=== PATIENT | female | born 1995 | race Two or more races ===

== ENCOUNTER 2019-11-14 20:21 | Inpatient (IN) | payer BC ==
[2019-11-14] MEDS ORDERED: Sodium Chloride 0.9% 2.5 ML Syringe FLUSH PRN (20:35)
[2019-11-14] MEDS ORDERED: Misoprostol 200 MCG Tab PO PRN (20:35)
[2019-11-14] MEDS ORDERED: Lidocaine 1% 50 ML MDV INJECT PRN (20:35)
[2019-11-14] MEDS ORDERED: Sodium Chloride 0.9% 10 ML Syringe FLUSH PRN (20:35)
[2019-11-14] MEDS ORDERED: Carboprost Tromethamine 250 MCG/1 ML Amp IM PRN (20:35)
[2019-11-14] MEDS ORDERED: Water For Irrigation,Sterile 1,000 ML Container IRR PRN (20:35)
[2019-11-14] MEDS ORDERED: Methylergonovine 0.2 MG/1 ML Amp IM PRN (20:35)
[2019-11-14] MEDS ORDERED: Nalbuphine 10 MG/1 ML Vial IVPUSH PRN (20:35)
[2019-11-14] MEDS ORDERED: Ondansetron 4 MG/2 ML SDV IVPUSH PRN (20:35)
[2019-11-14] MEDS ORDERED: Sodium Chloride 0.9% 10 ML SDV IV PRN (20:35)
[2019-11-14] MEDS ORDERED: Tranexamic Acid 1,000 MG in Sodium Chloride 0.9% 100 ML IV PRN (20:35)
[2019-11-14] MEDS ORDERED: Terbutaline 1 MG/ML SDV SUBCUT PRN (20:38)
[2019-11-14] MEDS ORDERED: Oxytocin/0.9 % Sodium Chloride 30 UNIT/500 ML BAG IV SCH ×2 (20:45)
[2019-11-14] MEDS: Lactated Ringers 1,000 ML IV SCH (21:15)
[2019-11-15] MEDS ORDERED: Famotidine 20 MG Tab PO ONE (01:15)
[2019-11-15] MEDS: Butorphanol 1 MG/ML SDV IVPUSH PRN ×2 (02:30→06:19)
[2019-11-15] MEDS: Lactated Ringers 1,000 ML IV SCH (09:25)
[2019-11-15] MEDS ORDERED: Ropivacaine HCl/PF 100 ML ONE ×2 (10:07→19:07)
[2019-11-15] MEDS ORDERED: fentaNYL 100 MCG/2 ML SDV ONE ×3 (10:07→19:07)
--- NOTE | 2019-11-15 10:35 | PCM.PREANE ---
Preanesthetic Assessment - Anesthesia/Transfusion/Family Hx Anesthesia History: Prior Anesthesia Without Reaction Family History of Anesthesia Reaction: No Transfusion History: No Prior Transfusion(s) Type of Transfusion Reactions: Reports: Unknown - Physical Assessment NPO Status Date: 11/15/19 NPO Status Time: 00:05 Height: 1.6 m Weight: 102.739 kg ASA Class: 1 - Lab Values: Laboratory Last Values WBC 12.73 K/uL (4.0-11.0) H 11/14/19 20:59 RBC 4.66 M/uL (4.30-5.90) 11/14/19 20:59 Hgb 11.4 g/dL (12.0-16.0) L 11/14/19 20:59 Hct 37.3 % (36.0-46.0) 11/14/19 20:59 MCV 80.0 fL (80.0-98.0) 11/14/19 20:59 MCH 24.5 pg (27.0-32.0) L 11/14/19 20:59 MCHC 30.6 g/dL (31.0-37.0) L 11/14/19 20:59 RDW Std Deviation 42.9 fl (28.0-62.0) 11/14/19 20:59 RDW Coeff of Buddy 15 % (11.0-15.0) 11/14/19 20:59 Plt Count 278 K/uL (150-400) 11/14/19 20:59 MPV 11.00 fL (7.40-12.00) 11/14/19 20:59 Nucleated RBC % 0.0 /100WBC 11/14/19 20:59 Nucleated RBCs # 0 K/uL 11/14/19 20:59 Blood Type O POSITIVE 11/14/19 20:59 Antibody Screen NEGATIVE 11/14/19 20:59 - Allergies Allergies/Adverse Reactions: Allergies Allergy/AdvReac Type Severity Reaction Status Date / Time No Known Allergies Allergy Verified 10/19/19 12:37 - Acknowledgements Anesthesia Type Planned: Epidural Pt an Appropriate Candidate for the Planned Anesthesia: Yes Alternatives and Risks of Anesthesia Discussed w Pt/Guardian: Yes Pt/Guardian Understands and Agrees with Anesthesia Plan: Yes PreAnesthesia Questionnaire HEENT History: Reports: None Cardiovascular History: Reports: None Respiratory History: Reports: None Gastrointestinal History: Reports: None Genitourinary History: Reports: None 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: Musculoskeletal History: Reports: None Neurological History: Reports: None Psychiatric History: Reports: None Hematologic History: Reports: None Immunologic History: Reports: None Oncologic (Cancer) History: Reports: None Dermatologic History: Reports: None - Infectious Disease History Infectious Disease History: Reports: None - Past Surgical History Head Surgeries/Procedures: Reports: None HEENT Surgical History: Reports: None Cardiovascular Surgical History: Reports: None GI Surgical History: Reports: None Female Surgical History: Reports: LEEP Endocrine Surgical History: Reports: None Neurological Surgical History: Reports: None Musculoskeletal Surgical History: Reports: None Oncologic Surgical History: Reports: None - SUBSTANCE USE Smoking Status *Q: Never Smoker Second Hand Smoke Exposure: No Recreational Drug Use History: No - HOME MEDS Home Medications: Home Meds . [No Known Home Meds] 10/19/19 [History] - CURRENT (IN HOUSE) MEDS Current Meds: Current Medications Butorphanol Tartrate (Stadol) 1 mg IVPUSH Q1H PRN PRN Reason: Pain Last Admin: 11/15/19 06:19 Dose: 1 mg Carboprost Tromethamine (Hemabate Ds) 250 mcg IM ASDIRECTED PRN PRN Reason: Post Hemorrhage Lactated Ringer's (Ringers, Lactated) 1,000 mls @ 150 mls/hr IV ASDIRECTED CARLOS Last Admin: 11/15/19 09:25 Dose: 150 mls/hr Oxytocin/Sodium Chloride (Oxytocin 30 Unit/500 Ml-Ns) 30 unit in 500 mls @ 999 mls/hr IV TITRATE CARLOS Tranexamic Acid 1,000 mg/ (Sodium Chloride) 110 mls @ 660 mls/hr IV ONETIME PRN PRN Reason: Bleeding Oxytocin/Sodium Chloride (Oxytocin 30 Unit/500 Ml-Ns) 30 unit in 500 mls @ 2 mls/hr IV TITRATE CARLOS; Protocol Last Titration: 11/15/19 10:01 Dose: 6 munits/min, 6 mls/hr Lidocaine HCl (Xylocaine 1%) 50 ml INJECT ONETIME PRN PRN Reason: Laceration repair Methylergonovine Maleate (Methergine) 0.2 mg IM ASDIRECTED PRN PRN Reason: Post Hemorrhage Misoprostol (Cytotec) 200 mcg PO ONETIME PRN PRN Reason: Post Hemorrhage Nalbuphine HCl (Nubain) 10 mg IVPUSH Q1H PRN PRN Reason: Pain (severe 7-10) Ondansetron HCl (Zofran) 4 mg IVPUSH Q6H PRN PRN Reason: Nausea/Vomiting Sodium Chloride (Saline Flush) 10 ml FLUSH ASDIRECTED PRN PRN Reason: Keep Vein Open Sodium Chloride (Saline Flush) 2.5 ml FLUSH ASDIRECTED PRN PRN Reason: Keep Vein Open Sodium Chloride (Normal Saline) 10 ml IV ASDIRECTED PRN PRN Reason: IV Use Sterile Water (Sterile Water For Irrigation) 1,000 ml IRR ASDIRECTED PRN PRN Reason: delivery Terbutaline Sulfate (Brethine) 0.25 mg SUBCUT ASDIRECTED PRN PRN Reason: Tacysystole Discontinued Medications Famotidine (Pepcid) 40 mg PO ONETIME ONE Stop: 11/15/19 01:16 Last Admin: 11/15/19 01:36 Dose: 40 mg Fentanyl (Sublimaze) Confirm Administered Dose 100 mcg .ROUTE .STK-MED ONE Stop: 11/15/19 10:08 Ropivacaine (Naropin 0.2%) Confirm Administered Dose 100 mls @ as directed .ROUTE .STK-MED ONE Stop: 11/15/19 10:08
--- NOTE | 2019-11-15 10:39 | PCM.PRNOTE ---
- Free Text/Narrative Note: Anes Note Patient requests epidural for L&D. Sitting position, level L3-L4 midline approach. Sterile technique. Chloraprep scrub to lumbar area. Sterile fenestrated drape applied. Epidural space easily achieved using HANNAH technique. HANNAH at 4 cm. Cath threaded 5 cm with ease. Cath secured at skin at 9 cm using sterile clear adhesive dressing. 1025 Test dose 3 cc 1.5% lido with epi negative 1030 Loading dose 10 cc 0.2% ropivicaine with 1 mcg cc fentanyl in slow divided doses. 1035 Pump started with 90 cc same solution. Rate is 8 cc hr with 6 cc q 20 min prn bolus. Brendan well. Time with patient [id number] Gustabo Lyman CRNA
--- NOTE | 2019-11-15 14:29 | PCM.PRNOTE ---
- Free Text/Narrative Note: Anes NOte Patient had been experiencing excellent analgesia, until recently. The analgesia abruptly stopped. I removed the existing epidural catheter which was still secreuly dressed and at the appropriate depth at skin. Under sterile technique, a new epidural was placed at level L3-L4 midline approach. Chloraprep scrub, and sterile technique with fenestrated drape. HANNAH at 4 cm. Cath threaded 6 cm with ease. Cath secured a t skin at 11 cm using sterile clear adhesive dressing. Test 1411 3 cc 1.5% lido with epi neg 1415 Load 100 mcg fentanyl and 5 cc 2% lido with epi was slowly injected in divided doses. Pump was restarted with same prior solution of 0.2% ropivicaine with 1 mcg cc fentanyl at 8 cc hr with 6 cc q 20 min prn bolus. Brendan well. Time with patient [id number] Gustabo Lyman CRNA.
--- NOTE | 2019-11-15 19:18 | PCM.PRNOTE ---
- Free Text/Narrative Note: Anes Note Epidural infusion has completed. A new 100 cc bag of 0.2% ropivicaine with 1 mcg cc fentanyl was added. Rate is 8 cc hr with 6 cc q 20 min prn bolus. Patient reports excellent analgesia. Time with patient [id number] Gustabo Lyman CRNA
[2019-11-15] MEDS ORDERED: Ampicillin/Sulbactam Na 3 GM in Sodium Chloride 0.9% 100 ML IV ONE (23:41)
[2019-11-15] MEDS ORDERED: oxyCODONE 5 MG Tab PO PRN (23:58)
[2019-11-15] MEDS ORDERED: Benzocaine/Menthol 20%-0.5% Spray 78 GM Cannister TOP PRN (23:58)
[2019-11-15] MEDS ORDERED: Ibuprofen 400 MG Tab PO PRN (23:58)
[2019-11-15] MEDS ORDERED: Witch Hazel Medicated Pads 40/Jar TOP PRN (23:58)
[2019-11-15] MEDS ORDERED: Bisacodyl 10 MG Supp RECTAL PRN (23:58)
[2019-11-15] MEDS ORDERED: Acetaminophen 500 MG Tab PO PRN ×2 (23:58)
[2019-11-15] MEDS ORDERED: Lanolin 100% Cream 7 GM Tube TOP PRN (23:58)
--- NOTE | 2019-11-16 00:04 | PCM.DEL ---
L & D Note - General Info Date of Service: 11/15/19 Mother's Due Date: 11/22/19 - Delivery Note Labor: Augmented by ARM, Induced by Oxytocin Cervical Ripening Method: Oxytocin Delivery Outcome: Livebirth Delivery Method: Spontaneous Vaginal Delivery-Single Presentation: Left Occiput Anterior ([place]IL[place]) Anesthesia Type: Epidural Amniotic Fluid Description: Clear Episiotomy Type: None Laceration: 1st Degree Suture size: 2-0 (monocryl) Placenta: Intact Cord: 3 Vessels Estimated Blood Loss: 500 Resuscitation Needed: No : Bulb Syringe, Stimulated, Warmed Score 1 min: 7 Score 5 min: 9 Delivery Comments (Free Text/Narrative):: Live male delivered at 2327, 7/9 , weight 4010g - General Info Date of Service: 11/16/19 - Patient Data Weight - Most Recent: 102.739 kg Med Orders - Current: Current Medications Acetaminophen (Tylenol Extra Strength) 500 mg PO Q4H PRN PRN Reason: Pain Acetaminophen (Tylenol Extra Strength) 1,000 mg PO Q4H PRN PRN Reason: Pain Benzocaine/Menthol (Dermoplast Pain Relief 20%-0.5% [place]) 78 gm TOP ASDIRECTED PRN PRN Reason: Perineal Comfort Measure Bisacodyl (Dulcolax) 10 mg RECTAL ONETIME PRN PRN Reason: Constipation Carboprost Tromethamine (Hemabate Ds) 250 mcg IM ASDIRECTED PRN PRN Reason: Post Hemorrhage Docusate Sodium (Colace) 100 mg PO BID PRN PRN Reason: Constipation Emollient Ointment (Lansinoh Hpa) 0 gm TOP ASDIRECTED PRN PRN Reason: Sore Nipples Lactated Ringer's (Ringers, Lactated) 1,000 mls @ 150 mls/hr IV ASDIRECTED [facility] Last Admin: 11/15/19 09:25 Dose: 150 mls/hr Oxytocin/Sodium Chloride (Oxytocin 30 Unit/500 Ml-Ns) 30 unit in 500 mls @ 999 mls/hr IV TITRATE [facility] Last Admin: 11/15/19 23:35 Dose: 999 mls/hr Tranexamic Acid 1,000 mg/ (Sodium Chloride) 110 mls @ 660 mls/hr IV ONETIME PRN PRN Reason: Bleeding Last Admin: 11/15/19 23:48 Dose: 660 mls/hr Oxytocin/Sodium Chloride (Oxytocin 30 Unit/500 Ml-Ns) 30 unit in 500 mls @ 2 mls/hr IV TITRATE CARLOS; Protocol Last Titration: 11/15/19 23:28 Dose: 999 mls/hr Ampicillin Sodium/Sulbactam (Sodium 3 gm/ Sodium Chloride) 100 mls @ 200 mls/ hr IV ONETIME ONE Stop: 11/16/19 00:10 Ibuprofen (Motrin) 400 mg PO Q4H PRN PRN Reason: Pain Ibuprofen (Motrin) 800 mg PO Q6H PRN PRN Reason: Pain Lidocaine HCl (Xylocaine 1%) 50 ml INJECT ONETIME PRN PRN Reason: Laceration repair Methylergonovine Maleate (Methergine) 0.2 mg IM ASDIRECTED PRN PRN Reason: Post Hemorrhage Last Admin: 11/15/19 23:37 Dose: 0.2 mg Misoprostol (Cytotec) 200 mcg PO ONETIME PRN PRN Reason: Post Hemorrhage Ondansetron HCl (Zofran) 4 mg IVPUSH Q6H PRN PRN Reason: Nausea/Vomiting Last Admin: 11/15/19 20:12 Dose: 4 mg Oxycodone HCl (Oxycodone) 5 mg PO Q2H PRN PRN Reason: Pain Sodium Chloride (Saline Flush) 10 ml FLUSH ASDIRECTED PRN PRN Reason: Keep Vein Open Sodium Chloride (Saline Flush) 2.5 ml FLUSH ASDIRECTED PRN PRN Reason: Keep Vein Open Sodium Chloride (Normal Saline) 10 ml IV ASDIRECTED PRN PRN Reason: IV Use Sterile Water (Sterile Water For Irrigation) 1,000 ml IRR ASDIRECTED PRN PRN Reason: delivery Last Admin: 11/15/19 23:40 Dose: 1,000 ml Terbutaline Sulfate (Brethine) 0.25 mg SUBCUT ASDIRECTED PRN PRN Reason: Tacysystole Witch [place] (Tucks) 1 pad TOP ASDIRECTED PRN PRN Reason: comfort care Discontinued Medications Butorphanol Tartrate (Stadol) 1 mg IVPUSH Q1H PRN PRN Reason: Pain Last Admin: 11/15/19 06:19 Dose: 1 mg Famotidine (Pepcid) 40 mg PO ONETIME ONE Stop: 11/15/19 01:16 Last Admin: 11/15/19 01:36 Dose: 40 mg Fentanyl (Sublimaze) Confirm Administered Dose 100 mcg .ROUTE .STK-MED ONE Stop: 11/15/19 10:08 Fentanyl (Sublimaze) Confirm Administered Dose 100 mcg .ROUTE .STK-MED ONE Stop: 11/15/19 14:07 Fentanyl (Sublimaze) Confirm Administered Dose 100 mcg .ROUTE .STK-MED ONE Stop: 11/15/19 19:08 Ropivacaine (Naropin 0.2%) Confirm Administered Dose 100 mls @ as directed .ROUTE .STK-MED ONE Stop: 11/15/19 10:08 Ropivacaine (Naropin 0.2%) Confirm Administered Dose 100 mls @ as directed .ROUTE .STK-MED ONE Stop: 11/15/19 19:08 Nalbuphine HCl (Nubain) 10 mg IVPUSH Q1H PRN PRN Reason: Pain (severe 7-10) Tranexamic Acid (Cyklokapron) Confirm Administered Dose 1,000 mg .ROUTE .STK- MED ONE Stop: 11/15/19 23:47 - Problem List & Annotations (1) Vaginal delivery SNOMED Code(s): 798731286 Code(s): O80 - ENCOUNTER FOR FULL-TERM UNCOMPLICATED DELIVERY Status: Acute Current Visit: Yes - Problem List Review Problem List Initiated/Reviewed/Updated: Yes - My Orders Last 24 Hours: My Active Orders 11/15/19 23:41 Ampicillin/Sulbactam Na [Unasyn] 3 gm Sodium Chloride 0.9% [Normal Saline] 100 ml IV ONETIME 11/15/19 23:58 Patient Status [ADT] Routine May Shower [RC] ASDIRECTED Up ad Meagan [RC] ASDIRECTED Vital Signs [RC] PER UNIT ROUTINE BLOOD GAS VENOUS UMBILICAL [BG] Stat Acetaminophen [Tylenol Extra Strength] 1,000 mg PO Q4H PRN Acetaminophen [Tylenol Extra Strength] 500 mg PO Q4H PRN Benzocaine/Menthol [Dermoplast Pain Relief 20%-0.5% [place]] 78 gm TOP ASDIRECTED PRN Docusate Sodium [Colace] 100 mg PO BID PRN Ibuprofen [Motrin] 400 mg PO Q4H PRN Ibuprofen [Motrin] 800 mg PO Q6H PRN Lanolin [Lansinoh HPA] See Dose Instructions TOP ASDIRECTED PRN bisacodyL [Dulcolax] 10 mg RECTAL ONETIME PRN oxyCODONE 5 mg PO Q2H PRN witch [place] [Tucks] 1 pad TOP ASDIRECTED PRN Assess Lochia [WOMSER] Per Unit Routine Assess Uterine Involution [WOMSER] Per Unit Routine Peripheral IV Discontinue [OM.PC] Routine Resuscitation Status Routine 11/16/19 05:11 CBC WITH AUTO DIFF [HEME] AM
[2019-11-16] MEDS: Docusate Sodium 100 MG Cap PO PRN ×2 (01:48→21:55)
[2019-11-16] MEDS: Ibuprofen 800 MG Tab PO PRN ×3 (01:48→21:55)
--- NOTE | 2019-11-16 02:05 | OR ---
SURGEON: TELMA LENZ DATE OF PROCEDURE: 11/15/2019 PREOPERATIVE DIAGNOSES: 1. A 24-year-old 1, para 0, at 39 weeks. 2. Elective induction of labor. 3. Suspected macrosomia. 4. Suspected cholestasis. POSTOPERATIVE DIAGNOSES: 1. A 24-year-old 1, para 0, at 39 weeks. 2. Elective induction of labor. 3. Suspected macrosomia. 4. Suspected cholestasis. PROCEDURES: 1. Normal spontaneous vaginal delivery. 2. Repair of first-degree labial laceration. ESTIMATED BLOOD LOSS: 500. ANESTHESIA: Epidural. NOTES AND FINDINGS: Live male delivered at 2327, scores 7 and 9. Weight is 4010 g. BRIEF HISTORY: The patient she is 24, G1, P0, was a low-risk patient, desired elective induction of labor because of a macrosomia noted on ultrasound. She was explained risks and benefits of induction of labor, which she decided to proceed. At induction of labor, she was 3, 50, -3, and she received Pitocin. After the Pitocin, she was AROM'ed and she then started to make change. She made little progress and became fully dilated within a couple of hours. Then, she was encouraged to push. DESCRIPTION OF PROCEDURE: With good pushing effort, she delivered the head subsequently by the anterior and posterior shoulder, the body was delivered, and placed on abdomen. Delayed cord clamping was observed. The cord was clamped and cut. The placenta was delivered via controlled cord traction. The perineum was inspected. A first- degree laceration was noted, which was repaired with 2-0 Monocryl. Bimanual massage was done to help with bleeding. Because of increased amount of bleeding noted, she was given Methergine IM x1 and, also she was given tranexamic acid. The patient was left in Labor and Delivery room in stable condition. LENNOX / LITZY /[id number] MTDD
--- NOTE | 2019-11-16 07:26 | PCM48HPAN ---
Post Anesthesia Note - EVALUATION WITHIN 48HRS OF ANESTHETIC Vital Signs in Normal Range: Yes Patient Participated in Evaluation: Yes Respiratory Function Stable: Yes Airway Patent: Yes Cardiovascular Function Stable: Yes Hydration Status Stable: Yes Pain Control Satisfactory: Yes Nausea and Vomiting Control Satisfactory: Yes Mental Status Recovered: Yes Vital Signs: Last Vital Signs Temp 35.9 C L 11/16/19 04:00 Pulse 83 11/16/19 04:00 Resp 16 11/16/19 04:00 BP 116/65 11/16/19 04:00 Pulse Ox 96 11/16/19 04:00
--- NOTE | 2019-11-16 09:03 | PCM.PNPP ---
- General Info Date of Service: 11/16/19 Functional Status: Reports: Pain Controlled, Tolerating Diet, Ambulating, Urinating - Review of Systems General: Reports: No Symptoms HEENT: Reports: No Symptoms Pulmonary: Reports: No Symptoms Cardiovascular: Reports: No Symptoms Gastrointestinal: Reports: No Symptoms Genitourinary: Reports: No Symptoms Musculoskeletal: Reports: No Symptoms Skin: Reports: No Symptoms Neurological: Reports: No Symptoms Psychiatric: Reports: No Symptoms - General Info Date of Service: 11/16/19 - Patient Data Vital Signs - Most Recent: Last Vital Signs Temp 35.9 C L 11/16/19 07:35 Pulse 81 11/16/19 07:35 Resp 16 11/16/19 07:35 BP 120/67 11/16/19 07:35 Pulse Ox 98 11/16/19 07:35 Weight - Most Recent: 102.739 kg I&O - Last 24 Hours: Intake & Output 11/15/19 11/16/19 11/16/19 22:59 06:59 14:59 Output Total 50 Balance -50 Lab Results - Last 24 Hours: Laboratory Results - last 24 hr 11/15/19 11/16/19 Range/Units 23:27 05:40 WBC 26.38 H (4.0-11.0) K/uL RBC 4.30 (4.30-5.90) M/uL Hgb 10.6 L (12.0-16.0) g/dL Hct 34.1 L (36.0-46.0) % MCV 79.3 L (80.0-98.0) fL MCH 24.7 L (27.0-32.0) pg MCHC 31.1 (31.0-37.0) g/dL RDW Std Deviation 42.6 (28.0-62.0) fl RDW Coeff of Buddy 15 (11.0-15.0) % Plt Count 267 (150-400) K/uL MPV 11.00 (7.40-12.00) fL Add Manual Diff YES Neutrophils % (Manual) 77 (48.0-80.0) % Band Neutrophils % 1 % Lymphocytes % (Manual) 8 L (16.0-40.0) % Monocytes % (Manual) 12 (0.0-15.0) % Eosinophils % (Manual) 2 (0.0-7.0) % Nucleated RBC % 0.0 /100WBC Absolute Seg Neuts 20.3 H (1.4-5.7) Band Neutrophils # 0.3 Lymphocytes # (Manual) 2.1 (0.6-2.4) Monocytes # (Manual) 3.2 H (0.0-0.8) Eosinophils # (Manual) 0.5 (0.0-0.7) Nucleated RBCs # 0 K/uL Cord VBG pH 7.336 (7.25-7.45) Cord VBG Base Excess -6 (-10--2) Med Orders - Current: Current Medications Acetaminophen (Tylenol Extra Strength) 500 mg PO Q4H PRN PRN Reason: Pain Acetaminophen (Tylenol Extra Strength) 1,000 mg PO Q4H PRN PRN Reason: Pain Benzocaine/Menthol (Dermoplast Pain Relief 20%-0.5% [place]) 78 gm TOP ASDIRECTED PRN PRN Reason: Perineal Comfort Measure Last Admin: 11/16/19 01:47 Dose: 1 can Bisacodyl (Dulcolax) 10 mg RECTAL ONETIME PRN PRN Reason: Constipation Carboprost Tromethamine (Hemabate Ds) 250 mcg IM ASDIRECTED PRN PRN Reason: Post Hemorrhage Docusate Sodium (Colace) 100 mg PO BID PRN PRN Reason: Constipation Last Admin: 11/16/19 01:48 Dose: 100 mg Emollient Ointment (Lansinoh Hpa) 0 gm TOP ASDIRECTED PRN PRN Reason: Sore Nipples Last Admin: 11/16/19 01:47 Dose: 1 tube Lactated Ringer's (Ringers, Lactated) 1,000 mls @ 150 mls/hr IV ASDIRECTED [facility] Last Admin: 11/15/19 09:25 Dose: 150 mls/hr Oxytocin/Sodium Chloride (Oxytocin 30 Unit/500 Ml-Ns) 30 unit in 500 mls @ 999 mls/hr IV TITRATE [facility] Last Admin: 11/15/19 23:35 Dose: 999 mls/hr Tranexamic Acid 1,000 mg/ (Sodium Chloride) 110 mls @ 660 mls/hr IV ONETIME PRN PRN Reason: Bleeding Last Admin: 11/15/19 23:48 Dose: 660 mls/hr Oxytocin/Sodium Chloride (Oxytocin 30 Unit/500 Ml-Ns) 30 unit in 500 mls @ 2 mls/hr IV TITRATE CARLOS; Protocol Last Titration: 11/15/19 23:28 Dose: 999 mls/hr Ibuprofen (Motrin) 400 mg PO Q4H PRN PRN Reason: Pain Ibuprofen (Motrin) 800 mg PO Q6H PRN PRN Reason: Pain Last Admin: 11/16/19 07:51 Dose: 800 mg Lidocaine HCl (Xylocaine 1%) 50 ml INJECT ONETIME PRN PRN Reason: Laceration repair Methylergonovine Maleate (Methergine) 0.2 mg IM ASDIRECTED PRN PRN Reason: Post Hemorrhage Last Admin: 11/15/19 23:37 Dose: 0.2 mg Misoprostol (Cytotec) 200 mcg PO ONETIME PRN PRN Reason: Post Hemorrhage Ondansetron HCl (Zofran) 4 mg IVPUSH Q6H PRN PRN Reason: Nausea/Vomiting Last Admin: 11/15/19 20:12 Dose: 4 mg Oxycodone HCl (Oxycodone) 5 mg PO Q2H PRN PRN Reason: Pain Sodium Chloride (Saline Flush) 10 ml FLUSH ASDIRECTED PRN PRN Reason: Keep Vein Open Sodium Chloride (Saline Flush) 2.5 ml FLUSH ASDIRECTED PRN PRN Reason: Keep Vein Open Sodium Chloride (Normal Saline) 10 ml IV ASDIRECTED PRN PRN Reason: IV Use Sterile Water (Sterile Water For Irrigation) 1,000 ml IRR ASDIRECTED PRN PRN Reason: delivery Last Admin: 11/15/19 23:40 Dose: 1,000 ml Terbutaline Sulfate (Brethine) 0.25 mg SUBCUT ASDIRECTED PRN PRN Reason: Tacysystole Witch [place] (Tucks) 1 pad TOP ASDIRECTED PRN PRN Reason: comfort care Last Admin: 11/16/19 01:47 Dose: 1 tub Discontinued Medications Butorphanol Tartrate (Stadol) 1 mg IVPUSH Q1H PRN PRN Reason: Pain Last Admin: 11/15/19 06:19 Dose: 1 mg Famotidine (Pepcid) 40 mg PO ONETIME ONE Stop: 11/15/19 01:16 Last Admin: 11/15/19 01:36 Dose: 40 mg Fentanyl (Sublimaze) Confirm Administered Dose 100 mcg .ROUTE .STK-MED ONE Stop: 11/15/19 10:08 Last Admin: 11/16/19 02:56 Dose: Not Given Fentanyl (Sublimaze) Confirm Administered Dose 100 mcg .ROUTE .STK-MED ONE Stop: 11/15/19 14:07 Last Admin: 11/16/19 02:57 Dose: Not Given Fentanyl (Sublimaze) Confirm Administered Dose 100 mcg .ROUTE .STK-MED ONE Stop: 11/15/19 19:08 Last Admin: 11/16/19 02:57 Dose: Not Given Ropivacaine (Naropin 0.2%) Confirm Administered Dose 100 mls @ as directed .ROUTE .STK-MED ONE Stop: 11/15/19 10:08 Last Admin: 11/16/19 02:56 Dose: Not Given Ropivacaine (Naropin 0.2%) Confirm Administered Dose 100 mls @ as directed .ROUTE .STK-MED ONE Stop: 11/15/19 19:08 Last Admin: 11/16/19 02:57 Dose: Not Given Ampicillin Sodium/Sulbactam (Sodium 3 gm/ Sodium Chloride) 100 mls @ 200 mls/ hr IV ONETIME ONE Stop: 11/16/19 00:10 Last Admin: 11/16/19 00:07 Dose: 200 mls/hr Nalbuphine HCl (Nubain) 10 mg IVPUSH Q1H PRN PRN Reason: Pain (severe 7-10) Tranexamic Acid (Cyklokapron) Confirm Administered Dose 1,000 mg .ROUTE .STK- MED ONE Stop: 11/15/19 23:47 Last Admin: 11/16/19 02:57 Dose: Not Given - Infant Interaction Support Person: - Recovery Exam Fundal Tone: Firm Fundal Level: At Umbilicus Fundal Placement: Midline Lochia Amount: Scant Lochia Color: Rubra/Red Bladder Status: Voiding - Exam General: Alert HEENT: Pupils Equal Neck: Supple Lungs: Clear to Auscultation Cardiovascular: Regular Rate, Regular Rhythm GI/Abdominal Exam: Normal Bowel Sounds Extremities: Normal Inspection Neurological: No New Focal Deficit Psy/Mental Status: Alert - Problem List & Annotations (1) Vaginal delivery SNOMED Code(s): 425479175 Code(s): O80 - ENCOUNTER FOR FULL-TERM UNCOMPLICATED DELIVERY Status: Acute Current Visit: Yes - Problem List Review Problem List Initiated/Reviewed/Updated: Yes - My Orders Last 24 Hours: My Active Orders 11/15/19 23:58 Patient Status [ADT] Routine May Shower [RC] ASDIRECTED Up ad Meagan [RC] ASDIRECTED Vital Signs [RC] PER UNIT ROUTINE Acetaminophen [Tylenol Extra Strength] 1,000 mg PO Q4H PRN Acetaminophen [Tylenol Extra Strength] 500 mg PO Q4H PRN Benzocaine/Menthol [Dermoplast Pain Relief 20%-0.5% [place]] 78 gm TOP ASDIRECTED PRN Docusate Sodium [Colace] 100 mg PO BID PRN Ibuprofen [Motrin] 400 mg PO Q4H PRN Ibuprofen [Motrin] 800 mg PO Q6H PRN Lanolin [Lansinoh HPA] See Dose Instructions TOP ASDIRECTED PRN bisacodyL [Dulcolax] 10 mg RECTAL ONETIME PRN oxyCODONE 5 mg PO Q2H PRN witch [place] [Tucks] 1 pad TOP ASDIRECTED PRN Assess Lochia [WOMSER] Per Unit Routine Assess Uterine Involution [WOMSER] Per Unit Routine Peripheral IV Discontinue [OM.PC] Routine Resuscitation Status Routine 11/16/19 Breakfast Regular Diet [DIET] - Assessment Assessment:: 24yo P2 s/p PPD1 , Normal lochia yet to breastfed Elevated wbc count , no fever - Plan Plan:: Routine Unasyn q6h Pain control as needed WBC tomorrow AM
[2019-11-16] MEDS: Ampicillin/Sulbactam Na 3 GM in Sodium Chloride 0.9% 100 ML IV SCH ×2 (09:22→15:09)
[2019-11-17] MEDS: Ampicillin/Sulbactam Na 3 GM in Sodium Chloride 0.9% 100 ML IV SCH ×3 (02:43→09:09)
--- NOTE | 2019-11-17 11:11 | PCM.PNPP ---
- General Info Date of Service: 11/17/19 Subjective Update: 24yo P1 s/p , denies any complains Normal lochia , Pain control adequate Functional Status: Reports: Pain Controlled, Tolerating Diet, Ambulating, Urinating - Review of Systems General: Reports: No Symptoms HEENT: Reports: No Symptoms Pulmonary: Reports: No Symptoms Cardiovascular: Reports: No Symptoms Gastrointestinal: Reports: No Symptoms Genitourinary: Reports: No Symptoms Musculoskeletal: Reports: No Symptoms Skin: Reports: No Symptoms Neurological: Reports: No Symptoms Psychiatric: Reports: No Symptoms - General Info Date of Service: 11/17/19 - Patient Data Vital Signs - Most Recent: Last Vital Signs Temp 36.1 C 11/17/19 05:45 Pulse 69 11/17/19 05:45 Resp 16 11/17/19 05:45 BP 119/79 11/17/19 05:45 Pulse Ox 98 11/17/19 05:45 Weight - Most Recent: 102.739 kg Lab Results - Last 24 Hours: Laboratory Results - last 24 hr 11/17/19 Range/Units 07:35 WBC 20.42 H (4.0-11.0) K/uL RBC 4.40 (4.30-5.90) M/uL Hgb 11.0 L (12.0-16.0) g/dL Hct 35.0 L (36.0-46.0) % MCV 79.5 L (80.0-98.0) fL MCH 25.0 L (27.0-32.0) pg MCHC 31.4 (31.0-37.0) g/dL RDW Std Deviation 43.7 (28.0-62.0) fl RDW Coeff of Buddy 15 (11.0-15.0) % Plt Count 257 (150-400) K/uL MPV 10.60 (7.40-12.00) fL Neutrophils % (Manual) 71 (48.0-80.0) % Band Neutrophils % 12 % Lymphocytes % (Manual) 10 L (16.0-40.0) % Monocytes % (Manual) 4 (0.0-15.0) % Eosinophils % (Manual) 3 (0.0-7.0) % Nucleated RBC % 0.0 /100WBC Absolute Seg Neuts 14.5 H (1.4-5.7) Band Neutrophils # 2.5 Lymphocytes # (Manual) 2.0 (0.6-2.4) Monocytes # (Manual) 0.8 (0.0-0.8) Eosinophils # (Manual) 0.6 (0.0-0.7) Med Orders - Current: Current Medications Acetaminophen (Tylenol Extra Strength) 500 mg PO Q4H PRN PRN Reason: Pain Acetaminophen (Tylenol Extra Strength) 1,000 mg PO Q4H PRN PRN Reason: Pain Last Admin: 11/17/19 05:43 Dose: 1,000 mg Benzocaine/Menthol (Dermoplast Pain Relief 20%-0.5% [place]) 78 gm TOP ASDIRECTED PRN PRN Reason: Perineal Comfort Measure Last Admin: 11/16/19 01:47 Dose: 1 can Bisacodyl (Dulcolax) 10 mg RECTAL ONETIME PRN PRN Reason: Constipation Carboprost Tromethamine (Hemabate Ds) 250 mcg IM ASDIRECTED PRN PRN Reason: Post Hemorrhage Docusate Sodium (Colace) 100 mg PO BID PRN PRN Reason: Constipation Last Admin: 11/16/19 21:55 Dose: 100 mg Emollient Ointment (Lansinoh Hpa) 0 gm TOP ASDIRECTED PRN PRN Reason: Sore Nipples Last Admin: 11/16/19 01:47 Dose: 1 tube Lactated Ringer's (Ringers, Lactated) 1,000 mls @ 150 mls/hr IV ASDIRECTED CARLOS Last Admin: 11/15/19 09:25 Dose: 150 mls/hr Oxytocin/Sodium Chloride (Oxytocin 30 Unit/500 Ml-Ns) 30 unit in 500 mls @ 999 mls/hr IV TITRATE CARLOS Last Admin: 11/15/19 23:35 Dose: 999 mls/hr Tranexamic Acid 1,000 mg/ (Sodium Chloride) 110 mls @ 660 mls/hr IV ONETIME PRN PRN Reason: Bleeding Last Admin: 11/15/19 23:48 Dose: 660 mls/hr Oxytocin/Sodium Chloride (Oxytocin 30 Unit/500 Ml-Ns) 30 unit in 500 mls @ 2 mls/hr IV TITRATE [facility]; Protocol Last Titration: 11/15/19 23:28 Dose: 999 mls/hr Ibuprofen (Motrin) 400 mg PO Q4H PRN PRN Reason: Pain Ibuprofen (Motrin) 800 mg PO Q6H PRN PRN Reason: Pain Last Admin: 11/16/19 21:55 Dose: 800 mg Lidocaine HCl (Xylocaine 1%) 50 ml INJECT ONETIME PRN PRN Reason: Laceration repair Methylergonovine Maleate (Methergine) 0.2 mg IM ASDIRECTED PRN PRN Reason: Post Hemorrhage Last Admin: 11/15/19 23:37 Dose: 0.2 mg Misoprostol (Cytotec) 200 mcg PO ONETIME PRN PRN Reason: Post Hemorrhage Ondansetron HCl (Zofran) 4 mg IVPUSH Q6H PRN PRN Reason: Nausea/Vomiting Last Admin: 11/15/19 20:12 Dose: 4 mg Oxycodone HCl (Oxycodone) 5 mg PO Q2H PRN PRN Reason: Pain Sodium Chloride (Saline Flush) 10 ml FLUSH ASDIRECTED PRN PRN Reason: Keep Vein Open Sodium Chloride (Saline Flush) 2.5 ml FLUSH ASDIRECTED PRN PRN Reason: Keep Vein Open Sodium Chloride (Normal Saline) 10 ml IV ASDIRECTED PRN PRN Reason: IV Use Sterile Water (Sterile Water For Irrigation) 1,000 ml IRR ASDIRECTED PRN PRN Reason: delivery Last Admin: 11/15/19 23:40 Dose: 1,000 ml Terbutaline Sulfate (Brethine) 0.25 mg SUBCUT ASDIRECTED PRN PRN Reason: Tacysystole [place] (Tucks) 1 pad TOP ASDIRECTED PRN PRN Reason: comfort care Last Admin: 11/16/19 01:47 Dose: 1 tub Discontinued Medications Butorphanol Tartrate (Stadol) 1 mg IVPUSH Q1H PRN PRN Reason: Pain Last Admin: 11/15/19 06:19 Dose: 1 mg Famotidine (Pepcid) 40 mg PO ONETIME ONE Stop: 11/15/19 01:16 Last Admin: 11/15/19 01:36 Dose: 40 mg Fentanyl (Sublimaze) Confirm Administered Dose 100 mcg .ROUTE .STK-MED ONE Stop: 11/15/19 10:08 Last Admin: 11/16/19 02:56 Dose: Not Given Fentanyl (Sublimaze) Confirm Administered Dose 100 mcg .ROUTE .STK-MED ONE Stop: 11/15/19 14:07 Last Admin: 11/16/19 02:57 Dose: Not Given Fentanyl (Sublimaze) Confirm Administered Dose 100 mcg .ROUTE .STK-MED ONE Stop: 11/15/19 19:08 Last Admin: 11/16/19 02:57 Dose: Not Given Ropivacaine (Naropin 0.2%) Confirm Administered Dose 100 mls @ as directed .ROUTE .STK-MED ONE Stop: 11/15/19 10:08 Last Admin: 11/16/19 02:56 Dose: Not Given Ropivacaine (Naropin 0.2%) Confirm Administered Dose 100 mls @ as directed .ROUTE .STK-MED ONE Stop: 11/15/19 19:08 Last Admin: 11/16/19 02:57 Dose: Not Given Ampicillin Sodium/Sulbactam (Sodium 3 gm/ Sodium Chloride) 100 mls @ 200 mls/ hr IV ONETIME ONE Stop: 11/16/19 00:10 Last Admin: 11/16/19 00:07 Dose: 200 mls/hr Ampicillin Sodium/Sulbactam (Sodium 3 gm/ Sodium Chloride) 100 mls @ 200 mls/ hr IV Q6H CARLOS Stop: 11/17/19 09:15 Last Admin: 11/17/19 09:09 Dose: 200 mls/hr Nalbuphine HCl (Nubain) 10 mg IVPUSH Q1H PRN PRN Reason: Pain (severe 7-10) Tranexamic Acid (Cyklokapron) Confirm Administered Dose 1,000 mg .ROUTE .STK- MED ONE Stop: 11/15/19 23:47 Last Admin: 11/16/19 02:57 Dose: Not Given - Interaction Support Person: - Recovery Exam Fundal Tone: Firm Fundal Level: 1 Fingerbreadths Below Umbilicus Fundal Placement: Midline Lochia Amount: Scant Lochia Color: Rubra/Red Perineum Description: Intact, Minimal Bruising/Swelling Bladder Status: Voiding Urinary Elimination: Voided - Exam General: Alert HEENT: Pupils Equal Neck: Supple Lungs: Clear to Auscultation Cardiovascular: Regular Rate, Regular Rhythm GI/Abdominal Exam: Normal Bowel Sounds Extremities: Normal Inspection Neurological: No New Focal Deficit Psy/Mental Status: Alert - Problem List & Annotations (1) Vaginal delivery SNOMED Code(s): 041357557 Code(s): O80 - ENCOUNTER FOR FULL-TERM UNCOMPLICATED DELIVERY Status: Acute Current Visit: Yes - Problem List Review Problem List Initiated/Reviewed/Updated: No - Assessment Assessment:: 24yo P2 s/p PPD1 , Normal lochia WBC down to 20s, denies any fever - Plan Plan:: Routine Discharge home
== END 2019-11-17 12:30 | disposition home or self-care (01) | DRG 560 ==
LOC: MW.OB 20:21 → OBSVTOIN 11-15 23:58 → MW.OB 11-16 02:45
PROVIDERS: ADMIT Obstetrics & Gynecology; ATTEND Obstetrics & Gynecology
PROC: 10E0XZZ Delivery of Products of Conception, External Approach (ICD-10-PCS; principal; 2019-11-15)
PROC: 0HQ9XZZ Repair Perineum Skin, External Approach (ICD-10-PCS; 2019-11-15)
PROC: 3E0R3BZ Introduction of Anesthetic Agent into Spinal Canal, Percutaneous Approach (ICD-10-PCS; 2019-11-15)
PROC: 00HU33Z Insertion of Infusion Device into Spinal Canal, Percutaneous Approach (ICD-10-PCS; 2019-11-15)
PROC: 3E033VJ Introduction of Other Hormone into Peripheral Vein, Percutaneous Approach (ICD-10-PCS; 2019-11-15)
PROC: 10907ZC Drainage of Amniotic Fluid, Therapeutic from Products of Conception, Via Natural or Artificial Opening (ICD-10-PCS; 2019-11-15)
DX: O36.63X0 Maternal care for excessive fetal growth, third trimester, not applicable or unspecified (principal); Z3A.39 39 weeks gestation of pregnancy; Z37.0 Single live birth; O70.0 First degree perineal laceration during delivery; O26.62 Liver and biliary tract disorders in childbirth; K83.1 Obstruction of bile duct
CPT/HCPCS: 01967; 36415; 51702; 59025; 59409; 82803; 85007; 85025; 85027; 86592; 86593; 86850; 86900; 86901; A9270-GY; J0295; J0595; J2210; J2405; J2590; J7050; J7120

== ENCOUNTER 2021-08-23 15:48 | Emergency (ER) | payer BC ==
[2021-08-23] MEDS ORDERED: Sodium Chloride 0.9% 1,000 ML IV ONE (16:13)
[2021-08-23] MEDS ORDERED: Ondansetron 4 MG/2 ML SDV IVPUSH ONE (16:13)
[2021-08-23 17:07] LABS: CORONAVIRUS COVID-19 NAA POSITIVE (NEGATIVE); INFLUENZA A NAA NEGATIVE (NEGATIVE); INFLUENZA B NAA NEGATIVE (NEGATIVE)
[2021-08-23 17:08] LABS: BLOOD UREA NITROGEN,BUN 14 mg/dL (7.0-18.0); CHLORIDE,CL 104 mmol/L (98-107); GLUCOSE RANDOM 110 mg/dL (74-106); POTASSIUM,K 3.9 mmol/L (3.5-5.1); SODIUM,NA 139 mmol/L (136-145)
[2021-08-23] MEDS ORDERED: Iopamidol 755 MG/ML 500 ML Multipack Bottle IVPUSH STA (17:42)
== END 2021-08-23 18:26 | disposition home or self-care (01) ==
LOC: MW.ED 15:48
DX: U07.1 COVID-19 (principal); K52.9 Noninfective gastroenteritis and colitis, unspecified; D72.829 Elevated white blood cell count, unspecified
CPT/HCPCS: 0240U; 36415; 71045; 74177; 80053; 81001; 81025; 83605; 85025; 87040; 96374; 99284; J2405; J7030; Q9967

== ENCOUNTER 2025-01-07 18:46 | Emergency (ER) | payer OTHER, BC | END 2025-01-07 21:36 | disposition home or self-care (01) | LOC: MW.ED 18:46 | DX: S16.1XXA Strain of muscle, fascia and tendon at neck level, initial encounter (principal); S39.012A Strain of muscle, fascia and tendon of lower back, initial encounter; S29.011A Strain of muscle and tendon of front wall of thorax, initial encounter; Z75.3 Unavailability and inaccessibility of health-care facilities; V49.9XXA Car occupant (driver) (passenger) injured in unspecified traffic accident, initial encounter | CPT/HCPCS: 72125; 72131; 99284; A9270; 99282 ==